=== PATIENT | female | born 1995 | race Caucasian/White ===

== ENCOUNTER 2017-05-03 14:39 | Emergency (ER) | payer BC ==
[2017-05-03] MEDS ORDERED: FAMOTIDINE INJ/PF 20 MG/2 ML SDV IV ONE (16:43)
[2017-05-03] MEDS ORDERED: NORMAL SALINE 1000 ML 1,000 ML IV PRN (16:43)
[2017-05-03] MEDS ORDERED: DIPHENHYDRAMINE HCL 50 MG/ML VIAL IV ONE (16:43)
--- NOTE | 2017-05-03 16:46 | ER Document Report ---
ED Allergic Reaction - General Chief Complaint: Allergic Reaction Stated Complaint: POSSIBLE ALLERGIC REACTION Time Seen by Provider: 05/03/17 16:43 Mode of Arrival: Ambulatory Information source: Patient TRAVEL OUTSIDE OF THE [place] IN LAST 30 DAYS: No - HPI Patient complains to provider of: Acute allergic reaction Onset: This morning Onset/Duration: Gradual Quality of pain: No pain Medication Exposure: Antibiotic Skin rash / itching: Diffuse Recent Illness: Sore throat Notes: Patient is a 21-year-old female presenting to the emergency room today via EMS from urgent care for complaints of allergic reaction, patient recently started Levaquin that was prescribed by her primary care provider after she was seen for a sore throat, she developed symptoms this morning around 8 AM with diffuse itchy rash and redness, she has had difficulty swallowing related to her sore throat, and had some difficulty breathing earlier in the day, but that has since resolved, she received Decadron, Zantac and Benadryl at the urgent care center prior to coming to the room, no history of similar allergic reaction in the past - Related Data Allergies/Adverse Reactions: levofloxacin [From Levaquin] Allergy (Verified 05/03/17 17:31) Past Medical History - General Information source: Patient - Social History Smoking Status: Never Smoker Family History: Reviewed & Not Pertinent Patient has suicidal ideation: No Patient has homicidal ideation: No Renal/ Medical History: Denies: Hx Peritoneal Dialysis Review of Systems - Review of Systems Constitutional: No symptoms reported EENT: Throat pain, Difficulty swallowing Cardiovascular: No symptoms reported Respiratory: Short of breath Gastrointestinal: No symptoms reported Genitourinary: No symptoms reported Female Genitourinary: No symptoms reported Musculoskeletal: No symptoms reported Skin: Rash Hematologic/Lymphatic: No symptoms reported Neurological/Psychological: No symptoms reported -: Yes All other systems reviewed and negative Physical Exam - Vital signs Vitals: Temp Pulse Resp BP Pulse Ox 98.8 F 85 16 132/75 H 100 05/03/17 14:45 05/03/17 14:45 05/03/17 14:45 05/03/17 14:45 05/03/17 14:45 Interpretation: Normal - General General appearance: Appears well, Alert - HEENT Head: Normocephalic, Atraumatic Eyes: Normal Conjunctiva: Normal Extraocular movements intact: Yes Eyelashes: Normal Pupils: PERRL Sinus: Normal Nasal: Normal Mouth/Lips: Normal Pharynx: Tonsillar hypertrophy. No: Erythema, Exudate Neck: Normal - Respiratory Respiratory status: No respiratory distress Chest status: Nontender Breath sounds: Normal Chest palpation: Normal - Cardiovascular Rhythm: Regular Heart sounds: Normal auscultation Murmur: No - Abdominal Inspection: Normal Distension: No distension Bowel sounds: Normal Tenderness: Nontender Organomegaly: No organomegaly - Back Back: Normal, Nontender - Extremities General upper extremity: Normal inspection, Nontender, Normal color, Normal ROM , Normal temperature General lower extremity: Normal inspection, Nontender, Normal color, Normal ROM , Normal temperature, Normal weight bearing. No: Yanira's sign - Neurological Neuro grossly intact: Yes Cognition: Normal Orientation: AAOx4 [place] Coma Scale Eye Opening: Spontaneous Baljit Coma Scale Verbal: Oriented Baljit Coma Scale Motor: Obeys Commands Baljit Coma Scale Total: 15 Speech: Normal Motor strength normal: LUE, RUE, LLE, RLE Sensory: Normal - Psychological Associated symptoms: Normal affect, Normal mood - Skin Skin Temperature: Warm Skin Moisture: Dry Skin Color: Normal Skin irregularity: other - Diffuse mild urticaria Course - Re-evaluation Re-evalutation: 05/03/17 17:51 Patient resting comfortably, reports feeling much better, urticarial rash seems to be improved, patient will be discharged with medications for symptomatic relief and instructions for follow-up, advised to return if any additional concerns, patient acknowledges understanding and agreement with this plan 05/03/17 19:26 - Vital Signs Vital signs: Temp Pulse Resp BP Pulse Ox 97.8 F 75 16 127/76 H 97 05/03/17 18:09 05/03/17 18:09 05/03/17 18:09 05/03/17 18:09 05/03/17 18:09 Discharge - Discharge Clinical Impression: Allergic reaction caused by a drug Qualifiers: Encounter type: initial encounter Qualified Code(s): T78.40XA - Allergy, unspecified, initial encounter Condition: Stable Disposition: HOME, SELF-CARE Instructions: Acute Allergic Reaction ([facility]) Additional Instructions: Follow up with your primary care provider in one to 2 days. Return to the emergency room immediately if symptoms worsen or any additional concerns. Prescriptions: Diphenhydramine HCl [Benadryl 25 Mg Capsule] 25 mg PO Q6 #30 capsule Famotidine [Pepcid 20 mg Tablet] 20 mg PO BID #12 tablet Prednisone 40 mg PO DAILY #8 tablet
[2017-05-03 18:12] VITALS: BP 127/76
== END 2017-05-03 18:08 | disposition home or self-care (01) ==
LOC: ER 14:39
DX: L50.9 Urticaria, unspecified (principal); T37.8X5A Adverse effect of other specified systemic anti-infectives and antiparasitics, initial encounter; J02.9 Acute pharyngitis, unspecified; J35.1 Hypertrophy of tonsils; R13.10 Dysphagia, unspecified; R06.02 Shortness of breath
CPT/HCPCS: 99283; 96361; 96374; 96375; J1200; J7030; S0028